=== PATIENT | male | born 1950 | race Caucasian/White ===

== ENCOUNTER 2018-03-11 05:34 | Day surgery (SDC) | payer MEDICARE ==
[2018-03-03 16:39] LABS: BASOPHILS % (AUTO) 0.3 % (0-1); EOSINOPHILS # (AUTO) 0.5 X10'3 (0-0.9); EOSINOPHILS % (AUTO) 5.6 % (0-6); LYMPHOCYTES # (AUTO) 3.4 X10'3 (1.1-4.8); LYMPHOCYTES % (AUTO) 39.9 % (21-51); MEAN CORPUSCULAR HEMOGLOBIN 30.9 PG (27.0-31.0); MEAN CORPUSCULAR HGB CONC 32.4 % (33.0-36.5); MEAN CORPUSCULAR VOLUME 95.3 FL (78-98); MEAN PLATELET VOLUME 7.9 FL (7.4-10.4); MONOCYTES # (AUTO) 0.8 X10'3 (0-0.9); MONOCYTES % (AUTO) 9.8 % (2-12); NEUTROPHILS # (AUTO) 3.9 X10'3 (1.8-7.7); NEUTROPHILS % (AUTO) 44.4 % (42-75); PRE OP HEMATOCRIT 47.8 % (42.0-52.0); PRE OP HEMOGLOBIN 15.5 g/dL (14.0-17.9); PRE OP PLATELET COUNT 274 X10'3 (140-440); RED BLOOD COUNT 5.01 X10'6 (4.70-6.10); RED CELL DISTRIBUTION WIDTH 12.8 % (11.5-14.5)
[2018-03-03 17:00] LABS: ALBUMIN 3.6 G/DL (3.4-5.0); ALKALINE PHOSPHATASE 74 IU/L (46-116); BLOOD UREA NITROGEN 21 MG/DL (7-18); CALCIUM 8.5 MG/DL (8.5-10.1); CHLORIDE 102 MMOL/L (99-107); HEMOGLOBIN A1C 6.8 % (4.5-6.2); PRE OP ALT 33 U/L (30-65); PRE OP ANION GAP 12 (8-16); PRE OP AST 16 U/L (10-37); PRE OP BILIRUB, TOTAL 0.3 MG/DL (0.0-1.0); PRE OP GLUCOSE 135 MG/DL (70-104); PRE OP POTASSIUM 4.1 MMOL/L (3.4-5.1); PRE OP SODIUM 140 MMOL/L (135-145); TOTAL CARBON DIOXIDE 26.1 MMOL/L (24-32); TOTAL PROTEIN 7.1 G/DL (6.4-8.2); eGFR 75 ML/MIN
[~2018-03-11] VITALS: Ht 170.2 cm; Wt 91.0 kg
[2018-03-11] VITALS (7 sets, daily range): BP systolic 127–162; BP diastolic 66–80
[~2018-03-11 05:34] MED LIST: ALBU18HF2 INH; CANA300T PO; CARV-50 PO; DICL100G15 TOP; DOCUMENT DATE & TIME OF BETA-BLOCKER PO ONE; DULA1.5P SQ; EZET1TAB43 PO; FLUT1DIS4 INH; IRBE150T51 PO; METF-517 PO; NIFE30TA2 PO; PANT-47 PO; famotidine 20mg tablet PO ONE; oxyCODONE SR 10mg (sust. release) tab -2 tabs (20mg) PO ONE; ringers solution, lacted 1,000 ML IV SCH
[2018-03-11] MEDS ORDERED: LIDOcaine 1% (10mg/ml) 2ml vial ONE (05:51)
[2018-03-11] MEDS ORDERED: albuterol 2.5 MG/3 ML nebule NEB ONE (07:10)
[2018-03-11] MEDS ORDERED: MIDAZolam 5mg/5ml vial ONE (07:14)
[2018-03-11] MEDS ORDERED: fentaNYL/PF 50MCG/1 ML 2ML syringe ONE (07:14)
[2018-03-11] MEDS ORDERED: cloNIDine hcl/PF 100mcg/ml inj ONE (07:20)
[2018-03-11] MEDS ORDERED: ceFAZolin 1000mg inj ONE ×3 (07:20→08:09)
[2018-03-11] MEDS ORDERED: sevoflurane 250ml liquid IH ONE (07:32)
[2018-03-11] MEDS ORDERED: rocuronium 10mg/ml inj IV ONE (07:32)
[2018-03-11] MEDS ORDERED: ondansetron/PF 4mg/2ml inj ONE (07:32)
[2018-03-11] MEDS ORDERED: ringers solution, lacted 1,000 ML IV SCH (09:03)
[2018-03-11] MEDS ORDERED: enalaprilat dihydrate 2.5mg/2ml vial IV PRN (09:05)
[2018-03-11] MEDS ORDERED: meperidine/PF 25mg/ml syringe IV PRN ×3 (09:05)
[2018-03-11] MEDS ORDERED: proCHLORperazine 10 MG/2 ml inj IV PRN (09:05)
[2018-03-11] MEDS ORDERED: ondansetron/PF 4mg/2ml inj IV PRN (09:05)
[2018-03-11] MEDS ORDERED: morphine 4 MG/ML inj SYRINge IV PRN ×2 (09:05)
--- NOTE | 2018-03-11 11:38 | NUR ---
Received from OR via JUN[facility] , accompanied by Anesthesiologist ARIADNE and report given by Anesthesiolgist. PATIENT WTIH 18G PIV IN RIGHT UE RUNNING LRA T 100. PATIENT WITH SLING TO LEFT UE AND ANTERIOR SHOULDER DRESSING PRESENT AND IS CDI. PATIENT DENIES PAIN. + RADIAL PULSE PRESENT. Addendum: 03/11/18 at 1218 by Duane Munoz RN, RN Amended: Links added.
[2018-03-11] MEDS ORDERED: propofol inj 20 ML IV ONE (12:15)
[2018-03-11] MEDS ORDERED: dexamethasone sod phosphate 4mg/ml inj. ONE (12:15)
[2018-03-11] MEDS ORDERED: LIDOcaine 2% (20mg/ml) 5ml vial ONE (12:15)
--- NOTE | 2018-03-11 12:38 | NUR ---
ALL DC INSTRUCTIONS COVERED. ALL DC CRITERIA HAS BEEN MET. IV OUT WITHOUT COMPLICATIONS. DENIES PAIN. SLING ON, AMBULATED AND VOIDED PRIOR TO DC. ALL QUESTIONS ANSWERED. LEFT ANTERIOR SHOULDER DRESSING IS STILL CDI. Addendum: 03/11/18 at 1308 by Duane Munoz RN, RN Amended: Links added.
== END 2018-03-11 12:28 | disposition home or self-care (01) ==
LOC: PAS 05:34
PROVIDERS: ATTEND Orthopaedic Surgery
DX: M75.112 Incomplete rotator cuff tear or rupture of left shoulder, not specified as traumatic (principal); S43.432A Superior glenoid labrum lesion of left shoulder, initial encounter; G58.8 Other specified mononeuropathies; M75.02 Adhesive capsulitis of left shoulder; M19.012 Primary osteoarthritis, left shoulder; G56.82 Other specified mononeuropathies of left upper limb; M67.814 Other specified disorders of tendon, left shoulder; F17.210 Nicotine dependence, cigarettes, uncomplicated; J45.998 Other asthma; I10 Essential (primary) hypertension; E11.9 Type 2 diabetes mellitus without complications; I25.10 Atherosclerotic heart disease of native coronary artery without angina pectoris; E66.01 Morbid (severe) obesity due to excess calories; G89.18 Other acute postprocedural pain; Z86.19 Personal history of other infectious and parasitic diseases; Z95.5 Presence of coronary angioplasty implant and graft; Z79.84 Long term (current) use of oral hypoglycemic drugs; Z68.31 Body mass index [BMI] 31.0-31.9, adult; Z79.1 Long term (current) use of non-steroidal anti-inflammatories (NSAID); Z87.2 Personal history of diseases of the skin and subcutaneous tissue; Z85.828 Personal history of other malignant neoplasm of skin; Z98.890 Other specified postprocedural states; Z79.899 Other long term (current) drug therapy; X58.XXXA Exposure to other specified factors, initial encounter; Y93.89 Activity, other specified; Y92.89 Other specified places as the place of occurrence of the external cause; Y99.8 Other external cause status
CPT/HCPCS: 23412; 29807; 36415; 64450; 80053; 82948; 83036; 85025; 93005; 94640; A4649; C1713; J0690; J0735; J1100; J2001; J2250; J2405; J2704; J3010; J3490; A7000; J7030; J7120

== ENCOUNTER 2021-06-12 10:54 | Day surgery (SDC) | payer MEDICARE ==
[2021-06-07 08:44] LABS: BASOPHILS % (AUTO) 0.2 % (0-1); EOSINOPHILS # (AUTO) 0.4 X10'3 (0-0.9); EOSINOPHILS % (AUTO) 5.7 % (0-6); HEMATOCRIT 39.8 % (42.0-52.0); HEMOGLOBIN 13.3 g/dl (14.0-17.9); LYMPHOCYTES # (AUTO) 1.7 X10'3 (1.1-4.8); LYMPHOCYTES % (AUTO) 25.7 % (21-51); MEAN CORPUSCULAR HEMOGLOBIN 29.3 PG (27.0-31.0); MEAN CORPUSCULAR HGB CONC 33.5 g/dL (33.0-36.5); MEAN CORPUSCULAR VOLUME 87.3 FL (78-98); MEAN PLATELET VOLUME 7.5 FL (7.4-10.4); MONOCYTES # (AUTO) 0.8 X10'3 (0-0.9); MONOCYTES % (AUTO) 12.3 % (2-12); NEUTROPHILS # (AUTO) 3.8 X10'3 (1.8-7.7); NEUTROPHILS % (AUTO) 56.1 % (42-75); PLATELET COUNT 287 X10'3 (140-440); RED BLOOD COUNT 4.55 X10'6 (4.70-6.10); RED CELL DISTRIBUTION WIDTH 15.8 % (11.5-14.5); WHITE BLOOD COUNT 6.8 X10'3 (4.5-11.0)
[2021-06-07 08:48] LABS: ALBUMIN 3.2 G/DL (3.4-5.0); BLOOD UREA NITROGEN 17 MG/DL (7-18); BUN/CREATININE RATIO 15.5 (5.4-32.0); CALCIUM 8.7 MG/DL (8.5-10.1); GLUCOSE 140 MG/DL (70-104); TOTAL CARBON DIOXIDE 21.2 MMOL/L (24-32); eGFR 66 ML/MIN
[2021-06-07 08:51] LABS: APTT 25 SECONDS (22-32)
[2021-06-07 09:22] LABS: ANION GAP 14 (8-16); CHLORIDE 105 MMOL/L (99-107); POTASSIUM 4.3 MMOL/L (3.5-5.1); SODIUM 140 MMOL/L (135-145)
[2021-06-12] VITALS (8 sets, daily range): BP systolic 113–140; BP diastolic 54–71
[~2021-06-12] VITALS: Ht 170.2 cm; Wt 94.1 kg
[~2021-06-12 10:54] MED LIST changes: -DOCUMENT DATE & TIME OF BETA-BLOCKER PO ONE; +EZET-80 PO; -EZET1TAB43 PO; -famotidine 20mg tablet PO ONE; -oxyCODONE SR 10mg (sust. release) tab -2 tabs (20mg) PO ONE; -ringers solution, lacted 1,000 ML IV SCH
[2021-06-12] MEDS ORDERED: normal saline 1,000 ML IV SCH (11:15)
[2021-06-12] MEDS ORDERED: diphenhydrAMINE 25mg capsule PO PRN (11:15)
[2021-06-12] MEDS ORDERED: LORazepam 0.5 MG tablet PO PRN (11:15)
[2021-06-12] MEDS ORDERED: SILD50TA53 PO (11:46)
[2021-06-12] MEDS ORDERED: HYDR200T84 PO (11:46)
[2021-06-12] MEDS ORDERED: ASPI-1397 PO (11:46)
[2021-06-12] MEDS ORDERED: PHEN15CA6 PO (11:46)
[2021-06-12] MEDS ORDERED: METO-384 PO (11:46)
[2021-06-12] MEDS ORDERED: [UNRECOGNIZED DRUG - CODE] (11:47)
[2021-06-12] MEDS ORDERED: NABU-139 PO (11:47)
[2021-06-12] MEDS ORDERED: MULT9LIQ6 PO (11:51)
[2021-06-12] MEDS ORDERED: VARE1TAB24 (11:51)
[2021-06-12] MEDS ORDERED: LEFL10TA PO (11:51)
[2021-06-12] MEDS ORDERED: nitroGLYCERIN-Tridil 50MG/D5W 250 ML IV ONE (12:25)
[2021-06-12] MEDS ORDERED: verapamil 2.5 mg/ml inj IV ONE (12:25)
[2021-06-12] MEDS ORDERED: fentaNYL/PF 50MCG/1 ML 2ML syringe ONE (12:26)
[2021-06-12] MEDS ORDERED: heparin 1,000unit/ml 10ml vial 0 ML ONE (12:26)
[2021-06-12] MEDS ORDERED: LIDOcaine 1% (10mg/ml)w/preservative inj. 20ml MDV ONE (12:26)
[2021-06-12] MEDS ORDERED: iohexol 350MG/ML 100ml bottle IV ONE ×2 (12:26→13:32)
[2021-06-12] MEDS ORDERED: midazolam 1 mg/ML 2ml injection ONE (12:26)
[2021-06-12] MEDS ORDERED: clopidogrel 300mg tablet ONE (13:37)
[2021-06-12] MEDS ORDERED: aspirin 325mg tablet ONE (13:37)
[2021-06-12] MEDS ORDERED: heparin 1,000unit/ml 10ml vial 10 ML ONE (14:04)
[2021-06-12] MEDS ORDERED: HYDROcodone/acetaminophen 5mg/325mg tablet PO PRN (14:55)
[2021-06-12] MEDS ORDERED: HYDROcodone/acetaminophen 10/325mg tab PO PRN (14:55)
== END 2021-06-12 17:15 | disposition home or self-care (01) ==
LOC: SSTAY O 10:54
PROVIDERS: ATTEND Internal Medicine Interventional Cardiology
DX: R94.39 Abnormal result of other cardiovascular function study (principal); R06.09 Other forms of dyspnea; I25.10 Atherosclerotic heart disease of native coronary artery without angina pectoris; I11.9 Hypertensive heart disease without heart failure; I35.0 Nonrheumatic aortic (valve) stenosis; M19.90 Unspecified osteoarthritis, unspecified site; E78.5 Hyperlipidemia, unspecified; E11.51 Type 2 diabetes mellitus with diabetic peripheral angiopathy without gangrene; I70.213 Atherosclerosis of native arteries of extremities with intermittent claudication, bilateral legs; Z79.82 Long term (current) use of aspirin; Z79.899 Other long term (current) drug therapy; Z79.84 Long term (current) use of oral hypoglycemic drugs; Z96.651 Presence of right artificial knee joint; Z98.890 Other specified postprocedural states; Z79.01 Long term (current) use of anticoagulants
CPT/HCPCS: 36415; 80048; 82948; 85025; 85610; 85730; 93005; 93458; 99152; 99153; C1725; C1751; C1769; C1874; C1894; C9600; J1644; J2250; J3010; J3490; J7030; Q0163; Q9967; A4620; A5120; A6258

== ENCOUNTER 2023-10-07 11:42 | Day surgery (SDC) | payer MEDICARE ==
[~2023-10-07] VITALS: Ht 170.2 cm; Wt 87.0 kg
[2023-10-07] VITALS (8 sets, daily range): BP systolic 115–151; BP diastolic 45–85; PULSE 64–72; RESP 12–14; TEMP 99.1; O2SAT 92–100
[~2023-10-07 11:42] MED LIST changes: +ASPI-1397 PO; -CARV-50 PO; -DICL100G15 TOP; +HYDR200T73 PO; +LEFL10TA PO; +METO-384 PO; +MULT9LIQ6 PO; +NABU-139 PO; +PHEN15CA6 PO; +SILD50TA53 PO; +VARE1TAB24
[2023-10-07] MEDS ORDERED: LORazepam 0.5 MG tablet PO PRN (12:00)
[2023-10-07 12:41] LABS: BASOPHILS % (AUTO) 0.4 % (0-1); EOSINOPHILS # (AUTO) 0.4 X10'3 (0-0.9); EOSINOPHILS % (AUTO) 5.4 % (0-6); HEMATOCRIT 42.8 % (42.0-52.0); HEMOGLOBIN 13.6 g/dl (14.0-17.9); MEAN CORPUSCULAR HEMOGLOBIN 27.2 PG (27.0-31.0); MEAN CORPUSCULAR HGB CONC 31.7 g/dL (33.0-36.5); MEAN CORPUSCULAR VOLUME 85.9 FL (78-98); MEAN PLATELET VOLUME 7.5 FL (7.4-10.4); MONOCYTES # (AUTO) 0.7 X10'3 (0-0.9); NEUTROPHILS # (AUTO) 3.9 X10'3 (1.8-7.7); NEUTROPHILS % (AUTO) 56.2 % (42-75); PLATELET COUNT 364 X10'3 (140-440); RED BLOOD COUNT 4.98 X10'6 (4.70-6.10); RED CELL DISTRIBUTION WIDTH 16.3 % (11.5-14.5)
[2023-10-07] MEDS ORDERED: ARA20T PO (12:44)
[2023-10-07] MEDS ORDERED: SEMA2PEN (12:44)
[2023-10-07 12:48] LABS: APTT 25 SECONDS (22-32); INR 0.9 INR; PROTHROMBIN TIME 10.1 SECONDS (9.0-12.0)
[2023-10-07] MEDS: diphenhydrAMINE 25mg capsule PO PRN (12:52)
[2023-10-07] MEDS: normal saline 1,000 ML IV SCH (12:52)
[2023-10-07] MEDS ORDERED: diphenhydrAMINE 25mg capsule PO PRN (12:53)
[2023-10-07] MEDS ORDERED: fentaNYL/PF 50MCG/1 ML 2ML syringe ONE (12:56)
[2023-10-07] MEDS ORDERED: iohexol 350MG/ML 100ml bottle IV ONE ×2 (12:56→13:52)
[2023-10-07] MEDS ORDERED: midazolam 1 mg/ML 2ml injection ONE ×2 (12:56→13:33)
[2023-10-07] MEDS ORDERED: LIDOcaine 1% (10mg/ml) 2ml vial ONE (12:56)
[2023-10-07] MEDS ORDERED: verapamil 2.5 mg/ml inj IV ONE (12:56)
[2023-10-07] MEDS: LORazepam 0.5 MG tablet PO PRN (12:56)
[2023-10-07] MEDS ORDERED: heparin 1,000unit/ml 10ml vial 10 ML ONE (12:56)
[2023-10-07 12:58] LABS: ALBUMIN 3.8 G/DL (3.4-5.0); ANION GAP 7 (8-16); BLOOD UREA NITROGEN 19 MG/DL (7-18); BUN/CREATININE RATIO 20.9 (10.0-20.0); CHLORIDE 100 MMOL/L (99-107); CREATININE 0.91 MG/DL (0.60-1.10); GLUCOSE 111 MG/DL (70-104); POTASSIUM 4.4 MMOL/L (3.5-5.1); SODIUM 136 MMOL/L (135-145); TOTAL CARBON DIOXIDE 28.7 MMOL/L (24-32); eCRCL 70 ML/MIN; eGFR 82 ML/MIN
[2023-10-07] MEDS ORDERED: nitroGLYCERIN 500mcg/5mL D5W 5 ML IV ONE (12:59)
[2023-10-07 13:48] LABS: CHOL/HDL RATIO 2.2 (0.00-4.99); CHOLESTEROL 204 MG/DL (0-200); HDL CHOLESTEROL 94 MG/DL (35-60); LDL CHOLESTEROL 82 MG/DL (50-100); TRIGLYCERIDES 106 MG/DL (20-135)
[2023-10-07] MEDS ORDERED: aspirin 325mg tablet ONE (14:04)
[2023-10-07] MEDS ORDERED: clopidogrel 300mg tablet ONE (14:04)
[2023-10-07 14:51] LABS: ISTAT HGB ART 12.2 g/dl (14.0-17.9); ISTAT Hct ART 36 %PCV (42-52); ISTAT O2 SATURATION ARTERIAL 95 % (95-98); ISTAT SOURCE ART
[2023-10-07] MEDS ORDERED: HYDROcodone/acetaminophen 5mg/325mg tablet PO PRN (14:55)
[2023-10-07] MEDS ORDERED: HYDROcodone/acetaminophen 10/325mg tab PO PRN (14:55)
[2023-10-07] MEDS ORDERED: CLOP75TA34 PO (15:02)
[2023-10-08 14:26] LABS: ISTAT HGB MIX 12.2 g/dl (14.0-17.9); ISTAT Hct MIX 36 %PCV (42-52); ISTAT O2 SATURATION MIX VENOUS 70 % (60-80); ISTAT SOURCE VEN
== END 2023-10-07 16:45 | disposition home or self-care (01) ==
LOC: SSTAY O 11:42
PROVIDERS: ATTEND Student in an Organized Health Care Education/Training Program
DX: I35.0 Nonrheumatic aortic (valve) stenosis (principal); I25.10 Atherosclerotic heart disease of native coronary artery without angina pectoris; I10 Essential (primary) hypertension; E11.9 Type 2 diabetes mellitus without complications; E78.00 Pure hypercholesterolemia, unspecified; M19.90 Unspecified osteoarthritis, unspecified site; Z79.82 Long term (current) use of aspirin; Z79.84 Long term (current) use of oral hypoglycemic drugs; Z79.899 Other long term (current) drug therapy; Z98.890 Other specified postprocedural states
CPT/HCPCS: 36415; 80048; 80061; 82803; 82948; 85014; 85025; 85610; 85730; 93005; 93456; 99152; 99153; A6258; A6402; C1725; C1751; C1769; C1874; C1894; C9600; C9601; J1644; J2001; J2250; J3010; J3490; J7030; Q0163; Q9967; Z7610; 93460

== ENCOUNTER 2023-11-26 07:54 | Outpatient (CLI) | payer MEDICARE ==
[~2023-11-26 07:54] MED LIST changes: +ARA20T PO; +CLOP75TA34 PO; -HYDR200T73 PO; -LEFL10TA PO; -NABU-139 PO; +SEMA2PEN
[2023-11-26 08:35] LABS: BASOPHILS % (AUTO) 0.2 % (0-1); EOSINOPHILS # (AUTO) 0.3 X10'3 (0-0.9); EOSINOPHILS % (AUTO) 3.4 % (0-6); HEMATOCRIT 38.6 % (42.0-52.0); HEMOGLOBIN 12.4 g/dl (14.0-17.9); LYMPHOCYTES # (AUTO) 1.2 X10'3 (1.1-4.8); LYMPHOCYTES % (AUTO) 12.2 % (21-51); MEAN CORPUSCULAR HEMOGLOBIN 27.3 PG (27.0-31.0); MEAN CORPUSCULAR VOLUME 85.2 FL (78-98); MEAN PLATELET VOLUME 7.3 FL (7.4-10.4); MONOCYTES # (AUTO) 1.1 X10'3 (0-0.9); NEUTROPHILS # (AUTO) 7.1 X10'3 (1.8-7.7); NEUTROPHILS % (AUTO) 73.2 % (42-75); PLATELET COUNT 379 X10'3 (140-440); RED BLOOD COUNT 4.54 X10'6 (4.70-6.10); RED CELL DISTRIBUTION WIDTH 17.5 % (11.5-14.5); WHITE BLOOD COUNT 9.7 X10'3 (4.5-11.0)
[2023-11-26 08:37] LABS: APTT 25 SECONDS (22-32); PROTHROMBIN TIME 9.7 SECONDS (9.0-12.0)
[2023-11-26] MEDS ORDERED: IODIXANOL 320 MG/ML INFUS..BTL 100ML IV ONE (08:37)
[2023-11-26 08:39] LABS: INR 0.9 INR
[2023-11-26 08:43] LABS: ALANINE AMINOTRANSFERASE 20 U/L (12-78); ALBUMIN 3.1 G/DL (3.4-5.0); ALBUMIN/GLOBULIN RATIO 0.7 (1.1-1.5); ALKALINE PHOSPHATASE 96 IU/L (46-116); ANION GAP 6 (8-16); ASPARTATE AMINO TRANSFERASE 23 U/L (10-37); BILIRUBIN,TOTAL 0.5 MG/DL (0.1-1.0); BLOOD UREA NITROGEN 20 MG/DL (7-18); BUN/CREATININE RATIO 18.3 (10.0-20.0); CALCIUM 8.7 MG/DL (8.5-10.1); CHLORIDE 103 MMOL/L (99-107); CREATININE 1.09 MG/DL (0.60-1.10); GLUCOSE 148 MG/DL (70-104); POTASSIUM 4.8 MMOL/L (3.5-5.1); SODIUM 136 MMOL/L (135-145); TOTAL CARBON DIOXIDE 27.3 MMOL/L (24-32); TOTAL PROTEIN 7.5 G/DL (6.4-8.2); eGFR 66 ML/MIN
[2023-11-26 08:46] LABS: PRO BRAIN NATRIURETIC PEPTIDE 951 PG/ML (0-125)
== END 2023-11-26 23:59 | disposition home or self-care (01) ==
LOC: RAD 07:54
PROVIDERS: ATTEND Internal Medicine Cardiovascular Disease
DX: J43.9 Emphysema, unspecified (principal); J98.4 Other disorders of lung; I35.0 Nonrheumatic aortic (valve) stenosis; K57.30 Diverticulosis of large intestine without perforation or abscess without bleeding; R06.02 Shortness of breath; I65.29 Occlusion and stenosis of unspecified carotid artery; J98.11 Atelectasis; I25.10 Atherosclerotic heart disease of native coronary artery without angina pectoris
CPT/HCPCS: 36415; 71046; 71275; 74174; 75572; 80053; 83880; 85025; 85610; 85730; Q9967